=== PATIENT | female | born 1945 | race Caucasian/White ===

== ENCOUNTER 2024-05-18 14:28 | Outpatient (AMB) | payer MEDICARE, MEDICAID, SELFPAY ==
--- NOTE | 2024-05-18 14:48 | PD.RESCLINIC ---
Allergies/Meds Allergies & Medications Allergies No Known Allergies Allergy (Verified 05/18/24 14:48) Medication Reconciliation adhesive tape 1 X 5 yard ([employer]) #120 ea 12/09/23 [Rx Confirmed 05/18/24] bismuth tribrom-petrolatum,wh 5 X 9 bandage (Xeroform Petrolatum Dressing) #50 ea 12/09/23 [Rx Confirmed 05/18/24] lidocaine 4 % topical cream 1 applic topical BID PRN pain #25 grams 12/09/23 [Rx Confirmed 05/18/24] miscellaneous medical supply (Blood Pressure Cuff) #1 ea 12/09/23 [Rx Confirmed 05/18/24] ORTHO misc medical supplies (Adult Crutches) #1 ea 05/18/24 [Rx] gabapentin 300 mg capsule 300 mg PO TID 05/18/24 [History] losartan 25 mg tablet 50 mg PO QDAY 05/18/24 [History] MA Intake Visit Data Collection New Patient or Established: Established Patient (seen at [facility] within 3 years) Seen by Clinical Staff ONLY (RN/MA): No Pain Present Currently: No Pain scale:: 0 Pain Scale Used: [place]/Numerical Crisis Intervention Counselor Required: No PCP or OBGYN visit in last 3 months: No Hx Now: No Do You Feel Safe at Home: Yes Authorities Contacted: N/A Smoking Status Smoking Status: Never smoker For Televisit only Telemed Video/Phone Visit: Yes Verbal consent obtained for Telemed visit?: Yes Verbal Consent witness name: KIMMIE SHARP MA Telemed Video/Phone visit w/Clinical Staff: 21-30 min Immunization / Flu Flu Vaccine in the Last 12 Months: No Flu Vaccine Exclusion Criteria: No Exclusion Criteria Past Medical History Past Medical History CARDIAC: Negative Congestive Heart Failure RESPIRATORY: Negative Chronic Obstructive Pulmonary Disease (COPD) GENITOURINARY: Negative Renal Disease ENDOCRINE: Negative Diabetes Mellitus Type 1 or Diabetes Mellitus Type 2 Social History SMOKING STATUS: Smoking status: Never smoker Patient Portal Questionaires Social History Tobacco History Smoking Status: Never smoker Domestic Abuse History Do You Feel Safe at Home: Yes Review of Systems Report any current symptoms Only answer those that you have currently: Past Medical History Past Medical History Have you ever been diagnosed with any of the following: Cardiology Problems Congestive Heart Failure: No Respiratory Problems Chronic Obstructive Pulmonary Disease (COPD): No Genital/Urinary Problems Renal Disease: No Endocrine Problems Diabetes Mellitus Type 1: No Diabetes Mellitus Type 2: No History of Present Illness HPI Narrative Ms. Indio Agosto is a pleasant 78 year old female with PMH of peripheral neuropathy of unknown etiology and chronic leg wound presented to the clinic following for follow up. 10/21/2023: Patient complains of 11/10 pain bilateral hands and legs, worst on the left leg where her chronic venous ulcers are. She is not taking any pain medication. Pain is constant, worst with movement. Endorses intermittent sharp shooting pain. Has difficulty with statistical geneticist strength, worst right more than left. She continues to go to Wound Clinic and has been told her leg is improving. Duplex arterial ultrasound done, negative. Saw school guidance counselor since last visit and was prescribed glasses. Saw dentist as well, had tooth removed. Patient also noted to have some hair loss. 10/28/2023: Telehealth visit. After clinic visit, patient had 4-day episode of neuropathic attack in bilateral hands and feet, causing her to be bedbound. Describes pain as lightning sockets worst at night. Has never had this bad of an episode before. Associated with lower extremity swelling, difficult mobility. Did not want to call the ambulance. Pain improved after. She started taking gabapentin, which helps. Taking inconsistently, had times where she did not take any. She started taking the gabapentin, reports pain improved significantly but once pain is too much then gabapentin does not help. Recommended patient to take 100mg three times a day consistently and if breakthrough pain occurs, to titrate up to 2 tablets x 100mg three times a day for a few days. Since source of neuropathy unclear (not thyroid or diabetic), will consider neurology referral for nerve conduction studies. 11/18/2023: Patient doing well today. Her left lower leg wound is improving and healing. She stopped going to wound care 1 month ago. Today her neuropathy is good, and she stopped taking the gabapentin because she did not feel it helped and read it can make neuropathy work. She states the pain is manageable and stopped taking ibuprofen. Neurology referral in the process. Blood pressure improved, will continue losartan at current dose and encouraged patient to check BP at home. Will follow up in 3 weeks with renal panel. 12/09/2023: Patient present to clinic for follow up. Left lower leg wound healing well. Continues to complain of neuropathic pain but improved. Not taking pain medications. She has neurology appointment later this month. Requesting wound care suppplies as she no longer is going to the Wound Care clinic. Blood pressure elevated with systolic in 160s, counselled on increasing antihypertensive medciation dose. Patient declines at this time and open to re-evaluate next month. Kidney function fine. Recommended checking blood pressure at home with goal systolic below 130. 01/06/2024: Telehealth visit. Patient stubbed left foot 4th digit against box, causing pain on top of her usual left foot pain. Swelling, improving and is able to walk. Not taking pain medications. Saw neurologist Dr. Cueto this month and had nerve conduction testing for the upper limbs, lower limbs next month. Was not able to obtain wound care supplies from pharmacy, requests supplies to be ordered from [facility]. 05/18/2024: Telehealth visit. Patient requesting crutches for mobility, has difficulty walking due to peripheral neuropathy. Patient had EMG studies with Dr. Cardona, neurologist, and was diagnosed with peripheral neuropathy, now on gabapentin 300mg TID. Blood pressure improved at neurology clinic, losartan was increased from 25mg to 50mg. Patient endorses some financial difficulties with accessing medical supplies. Reordered crutches to pharmacy. Offered patient Home Health services however patient not interested at this time. Review of Systems Review of Systems Systems Reviewed: All systems reviewed, normal except as documented Objective/Exam Narrative Physical exam: Telehealth visit. Assessment & Plan Diagnosis / Problem List (1) Neuropathy: Status: Chronic Assessment & Plan: Patient endorsed nerve conduction studies with neurologist Dr. Cueto, was diagnosed with peripheral neuropathy. On gabapentin 300mg TID Endorses difficutly walking Plan: - Continue gabapentin per neurology - Crutches re-ordered (2) Hypertension: Status: Chronic Assessment & Plan: Improving, now on losartan 50mg Plan: - Continue losartan - Check BP at home Advanced Care Planning Advance care planning discussed with:: patient Office Procedures [facility] Level of Care Nursing/Assessment Patient Status: Established Patient Nursing Assessment/Reassessment: Medication Reconciliation and Update PMH in EMR Coordination of Care: Complex Care and Chronic Disease 1-5, Consent,records obtained, informed consent, Education Simp Pt/Fam and Staff clarify orders Established Patient Charge Established Patient Point Assignment: 70 Telehealth Telemed Phone/Video with patient at home & Dr,PA,REGULATORY AFFAIRS ANALYST: Yes
== END 2024-05-18 15:28 | disposition home or self-care (01) ==
LOC: HODAHC 14:28
PROVIDERS: PCP Student in an Organized Health Care Education/Training Program; Referring Provider Student in an Organized Health Care Education/Training Program; Supervising Provider Internal Medicine; Visit Provider Student in an Organized Health Care Education/Training Program
DX: G62.9 Polyneuropathy, unspecified (principal); I10 Essential (primary) hypertension
CPT/HCPCS: 99212; G0463

== ENCOUNTER → 2024-10-25 | Outpatient (CLI) | payer MEDICARE, MEDICAID, SELFPAY ==
[2024-10-25 09:51] LABS: Basophils # (Auto) 0.0 Thou/mm3 (0.0-0.2); Basophils % (Auto) 0 % (0-2.5); Eosinophils # (Auto) 0.1 Thou/mm3 (0.0-0.5); Eosinophils % (Auto) 2 % (0-10); Hematocrit 38.8 % (36.0-46.0); Hemoglobin 13.1 g/dL (12.0-16.0); Immature Granulocytes Auto 0.02 Thou/mm3 (0.00-0.00); Lymphocytes # (Auto) 1.2 Thou/mm3 (1.0-4.8); Lymphocytes % (Auto) 20 % (10-50); Mean Corpuscular HGB Conc 33.8 g/dl (31.0-37.0); Mean Corpuscular Hemoglobin 30.5 pg (25.0-35.0); Mean Corpuscular Volume 90 fL (80-100); Monocytes # (Auto) 0.5 Thou/mm3 (0.0-0.8); Monocytes % (Auto) 8 % (0-12); Neutrophils # (Auto) 4.0 Thou/mm3 (1.8-7.7); Neutrophils % (Auto) 69 % (37-80); Nucleated Red Blood Cell # 0.00 Thou/mm3 (0.00-0.00); Nucleated Red Blood Cell % 0 /100 WBC (0); Platelet Count 236 Thou/mm3 (140-440); RDW Standard Deviation 41.6 fL (36.4-46.3); Red Blood Count 4.30 Miln/mm3 (4.00-5.20); White Blood Count 5.8 Thou/mm3 (3.6-11.0)
[2024-10-25 10:00] LABS: Glucose Estimated Average 105 mg/dL (80-131); Hemoglobin A1C 5.3 % Hgb (4.8-6.0)
[2024-10-25 10:13] LABS: Alanine Aminotransferase 8 U/L (10-49); Albumin, Serum 3.8 gm/dL (3.4-4.8); Albumin/Globulin Ratio 1.1 (1.2-2.2); Alkaline Phosphatase 58 U/L (46-116); Anion Gap 10 (7-16); Aspartate Amino Transferase 17 U/L (0-34); BUN/Creatinine Ratio 16 Ratio (12-20); Bilirubin,Total 0.7 mg/dL (0.3-1.2); Blood Urea Nitrogen 11 mg/dL (9-23); Calcium 9.5 mg/dL (8.3-10.6); Calcium (Corrected) 9.7 mg/dL (8.5-10.1); Carbon Dioxide 26.4 mMol/L (20.0-31.0); Cardiac Risk Estimate 3.8 RATIO (3.7-5.6); Chloride 107 mMol/L (98-107); Cholesterol 164 mg/dL (132-200); Creatinine (Component) 0.7 mg/dL (0.6-1.3); Globulin 3.4 gm/dL (2.3-3.5); Glucose 109 mg/dL (74-106); HDL Cholesterol 43 mg/dL (40-60); LDL Cholesterol,Calculated 91 mg/dL (0-130); Osmolality,Calculated 285 (275-295); Potassium 3.9 mMol/L (3.4-5.1); Sodium 143 mMol/L (136-145); Thyroid Stimulating Hormone 1.65 uIU/mL (0.55-4.78); Total Protein 7.2 gm/dL (5.7-8.2); Triglycerides 152 mg/dL (30-150); eGFR > 60 See Note
== END | disposition home or self-care (01) ==
PROVIDERS: Referring Provider Psychiatry & Neurology Neurology; Visit Provider Psychiatry & Neurology Neurology
DX: R20.2 Paresthesia of skin (principal); I10 Essential (primary) hypertension; E78.5 Hyperlipidemia, unspecified
CPT/HCPCS: 36415; 80053; 80061; 83036; 84443; 85025